=== PATIENT | female | born 1965 | race Caucasian/White ===

== ENCOUNTER 2022-06-15 09:50 | Emergency (ER) | payer OTHER, SELFPAY ==
[2022-06-15 09:56] VITALS: BP 184/99; PULSE 91; RESP 24; TEMP 36.2; O2SAT 93; BMI 49.9
--- NOTE | 2022-06-15 10:15 | CRLHL7_ITS ---
For Patients: As a result of the Cures Act, medical imaging exams and procedure reports are released immediately into your electronic medical record. You may view this report before your referring provider. If you have questions, please contact your health care provider. HISTORY: Pain. TECHNIQUE: Two views of the lumbar spine. COMPARISON: No prior. FINDINGS: There is no acute lumbar fracture. Degenerative disc disease is present within the lumbar spine with multilevel loss intervertebral disc height, greatest at L4-L5 and L5-S1. There are facet joint degenerative changes. No significant lumbar malalignment. IMPRESSION: 1. No acute fracture or malalignment. 2. Degenerative disc and joint disease. Dictated by Krunal Jimenez MD @ 06/15/2022 10:45:28 AM Dictated by: Krunal Jimenez MD @ 06/15/2022 10:45:34 (Electronically Signed)
--- NOTE | 2022-06-15 10:17 | ED.GENADULT ---
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 She does a lot a lifting. She described pain in her right low back for the last couple of weeks. Has had no bowel or bladder incontinence fever chills perineal numbness. She was thought a pie apps have some urinary tract stone and she had a CT scan of her abdomen done recently the line of the basically was unremarkable. The patient reports the pain has been worse when she walks she does not have any real radicular symptoms but or lack of control of her bowel or bladder, but she does feel like her legs occasionally or weak in the upper legs due to the pain in her back. Denies trauma or injury other than repetitive use with her job lifting patients within as a certified nursing assistant. Related Data Home Medications Medication Instructions Recorded Confirmed lisinopril 20 1 tab PO DAILY 06/15/22 06/15/22 mg-hydrochlorothiazide 12.5 mg tablet tizanidine 4 mg tablet 4 mg PO Q8H PRN muscle spasm 06/15/22 06/15/22 Previous Rx's Medication Instructions Recorded prednisone 20 mg tablet 20 mg PO BID 5 days #10 tabs 06/15/22 tramadol 100 mg tablet 100 mg PO Q8H PRN pain #14 tabs 06/15/22 Allergies Allergy/AdvReac Type Severity Reaction Status Date / Time No Known Drug Allergies Allergy Verified 06/15/22 10:00 Review of Systems Status of ROS: Reports: 6 or more systems reviewed and unremarkable except as noted in History and below PFSH PFSH Social History Smoking Status: Current every day smoker What tobacco products do you use: cigarettes Smoking packs per day: 0.5 Smoking cigarettes per day: 10.0 Do you use any of these nicotine containing products: None Second hand tobacco smoke exposure: No How often do you have a drink containing alcohol: 4 or more times a week How many standard drinks containing alcohol do you have on a typical day: 1 or 2 How often do you have six or more drinks on one occasion: Less than monthly AUDIT-C Alcohol total score: 5 Non-prescribed substance use: denies use Exam Narrative: Exam Narrative: Objective vital signs unremarkable other than elevated blood pressure Patient has some tenderness to palpation right SI joint area Normal strength sensation lower extremities negative straight leg raise bilaterally Const: Vital Signs, click to edit/add: Vital Signs - 24 hr 06/15/22 09:56 Temperature 97.2 F L Pulse Rate [Pulse Oximeter] 91 Respiratory Rate 24 Blood Pressure [Ri ght Upper Arm] 184/99 H Pulse Oximetry 93 Oxygen Delivery Me thod Room Air Course Vital Signs Vital signs: Initial Vital Signs Temperature 97.2 F L 06/15/22 09:56 Temperature Source Temporal Artery Scan 06/15/22 09:56 Pulse Rate 91 06/15/22 09:56 Respiratory Rate 24 06/15/22 09:56 Blood Pressure 184/99 H 06/15/22 09:56 Blood Pressure Mean 127 06/15/22 09:56 Blood Pressure Position Sitting 06/15/22 09:56 Pulse Oximetry 93 06/15/22 09:56 Oxygen Delivery Method 06/15/22 09:56 Vital Signs Temperature 97.2 F L 06/15/22 09:56 Pulse Rate 91 06/15/22 09:56 Respiratory Rate 24 06/15/22 09:56 Blood Pressure 184/99 H 06/15/22 09:56 Pulse Oximetry 93 06/15/22 09:56 Oxygen Delivery Method 06/15/22 09:56 Temperature 97.2 F L 06/15/22 09:56 Pulse Rate 91 06/15/22 09:56 Respiratory Rate 24 06/15/22 09:56 Blood Pressure 184/99 H 06/15/22 09:56 Pulse Oximetry 93 06/15/22 09:56 Oxygen Delivery Method 06/15/22 09:56 Medical Decision Making MDM Narrative Medical decision making narrative: [age] year white female certified nursing assistant who does a lot a lifting with right low back pain SI joint area pain. Negative recent CT scan of the abdomen to rule out abnormality. She has had no fever chills or weight loss. At this point I suspect she has a musculoskeletal component to her pain perhaps SI inflammation verses low back inflammation. At this point I think an x-ray of her lumbar spine be appropriate, will give her IM morphine 10 mg, oral prednisone 50 and Toradol 30 mg IM. Will review her x-ray as it returns. I suspect she will need follow-up with primary care in the next 2-3 days will have her off work for a week's time, no rate of that affect. And recheck sooner to the ED problems or concerns otherwise follow up with primary care in 2-3 days. Addendum: By my review the x-rays look unremarkable of her lumbar spine other than some degenerative changes in her lower lumbar segments of the disc spaces, mild arthritic change. Normal alignment, no obvious fractures. The patient feels little bit better with her medications. Will give her prednisone 20 b.i.d. x5 days to complete off work for a week, ice the back, continue that today as a Chi and also Ultram as needed for pain she has been comfortable plan will follow up as directed. Discharge Plan Discharge Clinical Impression: Acute right-sided low back pain Patient Disposition: Home w/ Parent or Adult Condition: Stable Additional Instructions: Off work x1 week, follow-up with primary care in 2-3 days, ice to the low back, position of comfort. Prednisone 20 mg b.i.d. x5 days, Ultram as needed for pain, may use ibuprofen as well for pain.. May continue that his and his the tizanidine Activity Level: Light activity Discharge Diet: Regular Prescriptions: New tramadol 100 mg tablet 100 mg PO Q8H PRN (Reason: pain) Qty: 14 0RF prednisone 20 mg tablet 20 mg PO BID 5 Days Qty: 10 0RF No Action lisinopril-hydrochlorothiazide 20-12.5 mg tablet 1 tab PO DAILY tizanidine 4 mg tablet 4 mg PO Q8H PRN (Reason: muscle spasm) Follow Up/Referrals: Meredith Lama MD [Staff Physician] - Stand Alone Forms: [employer] Info Instructions
[2022-06-15] MEDS: MORPHINE 10 MG/ML inj IM (10:34)
[2022-06-15] MEDS: KETOROLAC 30 MG/ML inj IM (10:34)
[2022-06-15] MEDS: predniSONE 10 MG TABLET 50 MG PO (10:42)
== END 2022-06-15 10:50 | disposition home or self-care (01) ==
LOC: ED 10:33
PROVIDERS: Emergency Provider Family Medicine
DX: M54.50 Low back pain, unspecified (principal)
CPT/HCPCS: 72100; 96372; 99284; J1885; J2270; J7512

== ENCOUNTER 2023-07-23 15:06 | Outpatient (CLI) | payer OTHER, SELFPAY ==
--- OUTSIDE RECORDS SUMMARY | 2023-07-23 15:08 | XMS_ITS | Clinical Summary ---
Author Name Unknown Organization [email or web address] [facility] Address [place], [place] [address] Care Team Providers Care Embedded Software Design Engineer Name Role Phone [facility] Primary Care Provider [phone] Allergies No known active allergies Medications Medication Sig Dispensed Refills Start Date End Date Status tiZANidine (ZANAFLEX) 4 mg tabletIndications:Lumb ar paraspinal muscle spasm Take 1 Tablet (4 mg) by mouth every 8 hours if needed for Muscle Spasm. 45 Tablet 06/12/2022 Active sennosides-docusate (SENOKOT S) (8.6-50 mg) tabletIndications:Prim kelton osteoarthritis of right hip Take 2 Tablets by mouth two times daily. 100 Tablet 5 06/17/2022 Active lisinopril-hydrochloro thiazide 20-12.5 mg tablet (PRINZIDE)Indications: HTN (hypertension) Take 2 Tablets by mouth once daily. 180 Tablet 3 06/17/2022 Active oxyCODONE (ROXICODONE) 5 mg immediate release tabletIndications:Prim kelton osteoarthritis of right hip Take 1 Tablet (5 mg) by mouth every 4 hours if needed for Pain. 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 follow up ultrasound, Radioactive Iodine Uptake and Scan, and biopsy of cold nodule March 2011 Dr Monroe rec'd follow up ultrasound in 2 years Low back pain 12/27/2008 Cubital tunnel syndrome 08/17/2008 Radial head fracture 01/13/2008 Encounters Date Type Department Care Team Description 07/16/2023 Refill [facility] [address] [place] [address] Binta Cummings MD Error-please disregard from Last 3 Months Immunizations Name Administration Dates Next Due Influenza A (H1N1), Inactivated (Age >=3 Years) 02/14/2009 Influenza Virus, Unspecified 03/12/2020 Influenza, IIV3 (Age >=3 years) 01/27/2011 Tdap 01/24/2011 Family History Medical History Relation Name Comments Heart Disease Brother 1 stints Good Health Brother 2 Good Health Daughter Diabetes Father age 63 Hypertension Mother Other Mother aneyrism diad 5 6 Heart Disease Sister 1 Cande chf 51 Other Sister 1 Cande cp Hypertension Sister 2 Arthritis Sister 3 Good Health Son Relation Name Status Comments Brother 1 Brother 2 Daughter Father Mother Sister 1 Cande Sister 2 Sister 3 Son Social History Tobacco Use Types Packs/Day Years Used Date Smoking Tobacco: Every Day Cigarettes 0.3 40.1 Started: 06/18/1983 Smokeless Tobacco: Never Tobacco Cessation:Ready to Q uit: No; Counseling Given: Yes Comments:5 - 6 per day Alcohol Use Standard Drinks/Week Comments Yes 2 (1 standard drink = 0.6 oz pur e alcohol) couple beers a day Social Connections Answer Date Recorded Frequency of Communication with Friends and Fami ly Not on file 06/02/2022 Financial Resource Strain Answer Date R ecorded Difficulty of Paying Living Expenses Not on file 04/06/2021 Difficulty of Paying Living Expenses Not on file 04/06/2021 Sex and Gender Information Value Date Recorded Sex Assigned at Not on file Gender Identity Not on file Sexual Orientation Not on file Obstetrics History Last Filed Vital Signs Vital Sign Reading Time Taken Comments Blood Pressure 189/114 06/17/2022 3:01 PM CDT Pulse 79 06/17/2022 3:01 PM CDT Temperature 36.6 ??C (97.9 ??F) 06/17/2022 3:01 PM CD T Respiratory Rate 16 03/28/2011 11:2 0 AM [employer] Oxygen Saturation 94% 06/17/2022 3:01 PM CDT Inhaled Oxygen Concentration - - Weight 140.6 kg (309 lb 14.4 oz) 06/17/2022 3:01 PM CDT Height 165.1 cm (5' 5) 06/17/2022 3:01 PM CDT Body Mass Index 51.57 06/17/2022 3:01 PM CDT Plan of Treatment Health Maintenance Due Date Last Done Comments Pneumococcal series for age 6-64 (1 of 2 - PCV) 07/19/1971 Depression screening for age 12+ 1977 HIV for age 15-65 1980 Hepatitis C screening for age 18-79 07/19/1983 Colonoscopy through age 75 2010 Mammogram for age 45-75 02/04/2012 02/03/2011 Zoster (shingles) series for age 50+ (1 of 2) 07/19/2015 Pap test for age 21-65 01/23/2019 6, 01/24/2016, 01/24/2011 Tetanus booster 01/24/2021 01/24/2011 COVID-19 vaccine series ( season) 2022 06/14/2020, 05/17/2020 BMI (ht and wt on same day) for age 18+ 06/18/2023 06/17/2022 Influenza for age 50-64 12/06/2023 03/12/20 20, 01/27/2011, 02/14/2009 Lipids for age 45-75 01/22/2025 01/23/2020, 01/23/2020, 02/05/2011 Tdap Completed 01/24/2011 Procedures Procedure Name Priority Date/Time Associated Diagnosis Comments LIPID PANEL W REFLEX MEASURED LDL Add On 01/23/2020 3:25 PM CDT Screening cholesterol level TAXICAB STARTER THIN PREP PAP SCREEN IMAGED Routine 01/24/2016 1:30 PM CDT XR MAMMO BILAT SCREEN FFDM (IA) Routine 02/03/2011 3:31 PM CDT Other screening mammogram from Last 3 Months or Most Recently Relevant to Health Maintenance Results * (ABNORMAL) LIPID PANEL W REFLEX MEASURED LDL (01/23/2020 3:25 PM CDT) CHOLESTEROL,TOTAL 285(H) 100 - 199 mg/dL 01/23/2020 8:06 PM CDT [facility] TRIGLYCERIDES 555(H) <150 mg/dL 01/23/2020 8:06 PM CDT [facility] HDL CHOLESTEROL 41 >40 mg/dL 0 8:06 PM CDT [facility] NON-HDL CHOLESTEROL 244(H) <145 mg/dl 01/23/2020 8:06 PM CDT [facility] CHOL/HDL RATIO 6.95(H) <4.50 01/23/2020 8:06 PM CDT [facility] LDL CHOLESTEROL 0 8:06 PM CDT [facility] Comment:Invalid LDL when Tri g >400, reflexed to measured LDL PROVIDER ORDERED STATUS RANDOM 01/23/2020 8:06 PM CDT [facility] Blood BLOOD SPECIMEN / Unknown Venipuncture / Unknown 01/23/2020 3:25 PM CDT 01/23/2020 3:26 PM CDT Alisia Casey DO CHEMISTRY [facility] [address] [place] [address], * TAXICAB STARTER THIN PREP PAP SCREEN IMAGED (01/24/2016 1:30 PM CDT) Case Report Gynecologic Cytology Report ? Case: [id number] ? Authorizing Provider: ??Meredith Lama MD ??Collected: ? 01/24/2016 1330 ? First Screen: ?Lisell, Gerson ?Received: ?01/25/2016 1257 ? Rescreen: ?Yanelis Greene ? Specimen: ?TAXICAB STARTER ThinPrep Vial Screening, Cervical ? 01/31/2016 9:04 AM [facility] INTERPRETATION/ RESULT NEGATIVE FOR INTRAEPITHELIAL LESION OR MALIGNANCY (NIL) (none) 01/31/2016 9:[address] [facility] NISM(S) Trichomonas vaginalis 01/31/2016 9:04 AM [facility] SPECIMEN ADEQUACY Satisfactory for evaluation No endocervical component seen 01/31/2016 9:04 AM [facility] HPV REQUEST HPV and PAP 01/31/2016 9:04 AM [facility] Date of LMP 01/31/2016 9:04 AM [facility] Comment:unk Last Pap Date 01/31/2016 9:04 AM [facility] Comment:2011 Last Pap Result NIL 6 9:04 AM [facility] Additional Information history of colon biopsy 01/31/2016 9:[address] [facility] Automated Review Successful 01/31/2016 9:04 AM CDT [facility] Comment:Specimen processed s uccessfully by automated rouge sifter and miller device, ThinPrep Imaging System, [employer] ANCILLARY TESTING TAXICAB STARTER HPV Ordered, Please see separate report 01/31/2016 9:04 AM CDT [facility] Note The pap test is a screening technique, not a diagnostic procedure. It is used primarily to screen for squamous cancers and precursor lesions. Published studies have shown that it is subject to both false negative and false positive results. The pap test should not be used as the sole means to diagnose or exclude pre-malignant and malignant lesions. 01/31/2016 9:04 AM CDT [facility]ORY Other (Cervical) 01/24/2016 1:30 PM CDT 01/25/2016 12:57 PM CDT Meredith Lama MD PATHOLOGY/[facility] [address] [place] [address], [place] * XR MAMMO BILAT SCREEN FFDM (02/03/2011 3:31 PM CDT) Anatomical Region Laterality Modality BREASTS, Breast Left, Breast Right Bilateral Mammography Impressions 02/04/2011 12:42 PM CDT ??There is no radiographic evidence for malignancy. ??Recommend annual mammograms. A lay language report of this examination will be provided to the patient. MAMMOGRAM ASSESSMENT: ??ACR 1 Negative Narrative 02/04/2011 12:42 PM CDT XR MAMMO BILAT SCREEN FFDM [G0202.0] CLINICAL HISTORY: ??This is an asymptomatic 45 y.o. patient. INDICATION FOR EXAM: Mammogram Screening. TECHNIQUE: CC & MLO views were obtained. ??This digital study was evaluated with the assistance of Computer-Aided Detection. ?? COMPARISON FILM: This is a baseline study. FINDINGS: ??Mammographically, the breast tissue is almost entirely fat (<25% glandular). ??There are no dominant masses, suspicious micro calcifications or areas of architectural distortion. Procedure Note Camilo Keller DO - 02/04/2011 XR MAMMO BILAT SCREEN FFDM [G0202.0] CLINICAL HISTORY: This is an asymptomatic 45 y.o. patient. INDICATION FOR EXAM: Mammogram Screening. TECHNIQUE: CC & MLO views were obtained. This digital study was evaluatedwith the assistance of Computer-Aided Detection. COMPARISON FILM: This is a baseline study. FINDINGS: Mammographically, the breast tissue is almost entirely fat(<25% glandular). There are no dominant masses, suspicious microcalcifications or areas of architectural distortion. IMPRESSION: There is no radiographic evidence for malignancy. Recommendannual mammograms. A lay language report of this examination will be provided to the patient. MAMMOGRAM ASSESSMENT: ACR 1 Negative Suzan Stuart MD MAMMO from Last 3 Months or Most Recently Relevant to Health Maintenance Care Teams Embedded Software Design Engineer Relationship Specialty Start Date End Date [facility] [address] [place] [address] PCP - General 10/07/07
--- NOTE | 2023-07-23 15:30 | MR_ITS ---
Patient: LOLA DALAL Facility:?[facility] Patient ID:?[id number] Site Patient ID:?[id number]. Site :?[id number] Study:?MRI-Spine Lumbar W/O-07/23/2023 4:09:52 PM Ordering Physician:ISAI ALFARO Final Report: INDICATION: Disc degeneration. TECHNIQUE : Lumbar spine MRI without contrast. COMPARISON: Lumbar spine radiographs from 07/16/2023. FINDINGS : Transitional segment with bilateral hyperplastic transverse processes, the right which articulates with the sacral ala. Designated L5 on this report. Normal lumbar lordotic curve. No recent compression fracture or marrow replacing process. Hemangiomas are noted within the L1 and L2 vertebral bodies. Lower cord/conus signal is normal. The conus terminates at a normal location. No intradural lesion. No extraspinal soft tissue abnormalities. Discs/Endplates: L4-5 moderate disc height loss disc desiccation. Accompanying type 2 reactive marrow changes. L2-3 and L3-4 disc dehydration. Remaining discs are within normal limits. Findings at individual levels as follows: T11-12: No spinal canal or neural foraminal stenosis. T12-L1: Trace retrolisthesis. Minimal disc bulge. No spinal canal or neural foraminal stenosis. L1-2: Trace retrolisthesis. Minimal disc bulge. Bilateral low-grade facet arthrosis. No spinal canal or neural foraminal stenosis. L2-3: Mild disc bulge with underlying osteophytic ridging. Bilateral low-grade facet arthrosis. Mild bilateral neural foraminal stenosis. No spinal canal stenosis. L3-4: Mild disc bulge with osteophytic ridging. A superimposed left central/subarticular protrusion component. Mild impingement of the traversing left L4 nerve root. Overall mild spinal canal stenosis, mild left and [id number] right neural foraminal stenosis. L4-5: Moderate disc bulge with underlying osteophytic ridging, asymmetric to the left. A superimposed shallow broad-based 6 millimeter right central protrusion component. Bilateral facet arthrosis. Moderate spinal canal stenosis and right subarticular recess stenosis with impingement of the traversing right L5 nerve root. Moderate bilateral neural foraminal stenosis. L5-S1: No spinal canal or neural foraminal stenosis. Imaged SI joints: Minimal arthrosis. Imaged sacrum: Within normal limits. IMPRESSION: 1. Transitional segment designated L5. 2. At L3-4, left central/subarticular protrusion mildly impinges the traversing left L4 nerve root. Overall mild spinal canal stenosis. 3. At L4-5, spondylosis including a right central protrusion contributes to moderate spinal canal stenosis and right subarticular recess stenosis with impingement of the traversing right L5 nerve root. 4. Disc degeneration most prominent at L4-5, where there is accompanying type 2 reactive marrow changes. Dictated by Dane Gary MD @ 07/24/2023 11:44:05 AM Signed by:?Dane Gary MD @07/24/2023 11:44:05 AM (Electronic Signature)
== END 2023-07-23 15:07 | disposition home or self-care (01) ==
LOC: MRI 15:07
PROVIDERS: Visit Provider Family Medicine
DX: M51.36 Other intervertebral disc degeneration, lumbar region (principal); M51.26 Other intervertebral disc displacement, lumbar region; M47.896 Other spondylosis, lumbar region
CPT/HCPCS: 72148

== ENCOUNTER 2023-08-18 07:44 | Outpatient (CLI) | payer OTHER, SELFPAY ==
--- OUTSIDE RECORDS SUMMARY | 2023-08-18 07:48 | XMS_ITS | Clinical Summary ---
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 follow up ultrasound, Radioactive Iodine Uptake and Scan, and biopsy of cold nodule March 2011 Dr Monroe rec'd follow up ultrasound in 2 years Low back pain 12/27/2008 Cubital tunnel syndrome 08/17/2008 Radial head fracture 01/13/2008 Encounters Date Type Department Care Team Description 08/17/2023 Telephone [facility] [address] [place] [address] Saida Mcwilliams RN Pre Procedure (Left message for career law clerk call) 08/04/2023 Transcribe Orders [facility] [place] [address] [facility] [address] [place] [address] Spec, Sports & Ortho 08/04/2023 Transcribe Orders [facility] [address] [place] [address] Rajeev Walker MD 07/23/2023 Orders Only [facility] Scanner 1 scan: (1-Ord) [place], LUMBAR SPINE WO CON, 07/23/2023 07/16/2023 Refill [facility] [address] [place] [address] Binta Cummings MD Error-please disregard from Last [...] Date Smoking Tobacco: Every Day Cigarettes 0.3 40.2 Started: 06/18/1983 Smokeless Tobacco: Never Tobacco Cessation:Ready [...] Respiratory Rate 16 03/28/2011 11:2 0 AM PERIODICALS CLERK Oxygen Saturation 94% 06/17/2022 3:01 PM CDT Inhaled Oxygen Concentration - - Weight 140.6 kg (309 lb 14.4 oz) 06/17/2022 3:01 PM CDT Height 165.1 cm (5' 5) 06/17/2022 3:01 PM CDT Body Mass Index 51.57 06/17/2022 3:01 PM CDT Plan of Treatment Upcoming Encounters Date Type Department Care Team (Late st Contact Info) Description 08/18/2023 8:20 AM CDT Office Visit [facility] at [facility] [address] [facility] [address] [place] [address] Rajeev Walker MD [address] [place] [address] 08/19/2023 3:15 PM CDT Preop Visit [facility] [address] [place] [address] Rosa M Kim PA [address] [place] [address] 08/28/2023 11:15 AM CDT Hospital Encounter [facility] [address] [place] [address] Garry Alfonso MD [address] [place] [address] 08/28/2023 11:15 AM CDT - 08/28/2023 1:00 PM CDT Surgery [facility] [address] [place] [address] Garry Alfonso MD [address] [place] [address] RIGHT ARTHROPLASTY HIP Scheduled Procedures Name Priority Associated Diagnoses Date/Ti me ARTHROPLASTY HIP Elective 08/28/2023 11:15 AM CDT Health Maintenance Due Date Last Done Comments [...] Procedure Name Priority Date/Time Associated Diagnosis Comments SCAN-MRI INTERPRETATION 07/23/2023 12:00 AM CDT LIPID PANEL W REFLEX MEASURED LDL Add On 01/23/2020 3:25 PM CDT Screening cholesterol level DIRECTOR OF SLEEP THIN PREP PAP SCREEN IMAGED Routine 01/24/2016 1:30 PM CDT XR MAMMO BILAT SCREEN FFDM (IA) Routine 02/03/2011 3:31 PM CDT Other screening mammogram from Last 3 Months or Most Recently Relevant to Health Maintenance Results * SCAN-MRI INTERPRETATION (07/23/2023 12:00 AM CDT) Anatomical Region Laterality Modality Other Scanner OTHER * (ABNORMAL) LIPID PANEL W REFLEX MEASURED LDL (01/23/2020 3:25 PM CDT) CHOLESTEROL,TOTAL 285(H) 100 - 199 mg/dL 01/23/2020 8:06 PM CDT [facility] [employer] TRIGLYCERIDES 555(H) <150 mg/dL 01/23/2020 8:06 PM CDT [facility] HDL CHOLESTEROL 41 >40 mg/dL 0 8:06 PM CDT [facility] NON-HDL CHOLESTEROL 244(H) <145 mg/dl 01/23/2020 8:06 PM CDT [facility] CHOL/HDL RATIO 6.95(H) <4.50 01/23/2020 8:06 PM CDT [facility] LDL CHOLESTEROL 0 8:06 PM CDT [facility] Comment:Invalid LDL when Tri g >400, reflexed to measured LDL PROVIDER ORDERED STATUS RANDOM 01/23/2020 8:06 PM CDT [facility] Blood BLOOD SPECIMEN / Unknown Venipuncture / Unknown 01/23/2020 3:25 PM CDT 01/23/2020 3:26 PM CDT Alisia Casey DO CHEMISTRY [facility] [address] [place] [address], [place] * DIRECTOR OF SLEEP THIN PREP PAP SCREEN IMAGED (01/24/2016 1:30 PM CDT) Case Report Gynecologic Cytology Report ? Case: [id number] ? Authorizing Provider: ??Meredith Lama MD ??Collected: ? 01/24/2016 1330 ? First Screen: ?William, Gerson ?Received: ?01/25/2016 1257 ? Rescreen: ?Yanelis Greene ? Specimen: ?DIRECTOR OF SLEEP ThinPrep Vial Screening, Cervical ? 01/31/2016 9:04 AM CDT [facility] INTERPRETATION/ RESULT NEGATIVE FOR INTRAEPITHELIAL LESION OR MALIGNANCY (NIL) (none) 01/31/2016 9:04 AM CDT [facility] NISM(S) Trichomonas vaginalis 01/31/2016 9:04 AM CDT [facility] ENTRAL LAB[facility] SPECIMEN ADEQUACY Satisfactory for evaluation No endocervical component seen 01/31/2016 9:04 AM CDT [facility] ENTRAL LABORATORY HPV REQUEST HPV and PAP 01/31/2016 9:04 AM CDT [facility] ENTRAL LABORATORY Date of LMP 01/31/2016 9:04 AM CDT [facility] Comment:unk Last Pap Date 01/31/2016 9:04 AM CDT [facility] Comment:2011 Last Pap Result NIL 6 9:04 AM CDT [facility] Additional Information history of colon biopsy 01/31/2016 9:04 AM CDT [facility] Automated Review Successful 01/31/2016 9:04 AM CDT [facility] Comment:Specimen processed s uccessfully by automated internet marketing analyst device, [employer] Imaging System, [employer] ANCILLARY TESTING DIRECTOR OF SLEEP HPV Ordered, Please see separate report 01/31/2016 9:04 AM CDT [facility] Note The pap test is a [...] and malignant lesions. 01/31/2016 9:04 AM CDT [facility] Other (Cervical) 01/24/2016 1:30 PM CDT 01/25/2016 12:57 PM CDT Meredith Lama MD PATHOLOGY/[facility] [address] [place] [address], * XR MAMMO BILAT SCREEN FFDM (02/03/2011 [...] Recently Relevant to Health Maintenance Care Teams Key Account Director Relationship Specialty Start Date End Date [facility] [address] [place] [address] PCP - General 10/07/07
== END 2023-08-18 07:45 | disposition home or self-care (01) ==
LOC: INJ CL 07:47
PROVIDERS: Visit Provider Family Medicine
DX: M54.16 Radiculopathy, lumbar region (principal); M51.26 Other intervertebral disc displacement, lumbar region
CPT/HCPCS: 64483; J1100; Q9966